=== PATIENT | female | born 1995 | race Caucasian/White ===

== ENCOUNTER 2017-01-07 17:28 | Emergency (ER) | payer BC ==
--- NOTE | 2017-01-07 18:02 | ER Document Report ---
ED Medical Screen (RME) - General Chief Complaint: Vaginal Bleeding Stated Complaint: VAGINAL BLEEDING Time Seen by Provider: 01/07/17 17:52 Mode of Arrival: Ambulatory Information source: Patient TRAVEL OUTSIDE OF THE [place] IN LAST 30 DAYS: No - HPI Patient complains to provider of: ; vaginal bleeding Onset: Just prior to arrival - pt is approx 9 wks along who started bleeding per vaginal earlier this evening. Has had some crampy abdominal pain. - Related Data Allergies/Adverse Reactions: latex Allergy (Verified 01/07/17 17:47) mupirocin [From Bactroban] Allergy (Verified 01/07/17 17:47) Home Medications: Current Home Medications No122/Iron/Folic Acid [ Multi Tablet] 1 each PO DAILY 01/07/17 [History] Past Medical History - General Last Menstrual Period: 11/02/16 Renal/ Medical History: Denies: Hx Peritoneal Dialysis Physical Exam - Vital signs Vitals: Temp Pulse Resp BP Pulse Ox 99.5 F 93 18 125/78 98 01/07/17 17:40 01/07/17 17:40 01/07/17 17:40 01/07/17 17:40 01/07/17 17:40 Course - Vital Signs Vital signs: Temp Pulse Resp BP Pulse Ox 99.5 F 93 18 125/78 98 01/07/17 17:40 01/07/17 17:40 01/07/17 17:40 01/07/17 17:40 01/07/17 17:40
[2017-01-07 18:52] LABS: ABSOLUTE EOSINOPHILS # (AUTO) 0.2 10^3/uL (0.0-0.6); ABSOLUTE LYMPHOCYTES (AUTO) 1.8 10^3/uL (0.5-4.7); ABSOLUTE MONOCYTES (AUTO) 0.6 10^3/uL (0.1-1.4); ABSOLUTE NEUT (AUTO) 3.4 10^3/uL (1.7-8.2); BASOPHILS % (AUTO) 0.4 % (0-2); EOSINOPHILS % (AUTO) 3.2 % (0-6); HEMATOCRIT 38.4 % (36.0-47.0); HEMOGLOBIN 13.5 g/dL (12.0-15.5); HGB HCT DIFFERENCE 2.1; MEAN CORPUSCULAR HEMOGLOBIN 28.4 pg (27.0-33.4); MEAN CORPUSCULAR HGB CONC 35.1 g/dL (32.0-36.0); MEAN CORPUSCULAR VOLUME 81 fl (80-97); MONOCYTES % (AUTO) 9.4 % (3-13); RED BLOOD COUNT 4.74 10^6/uL (3.72-5.28); RED CELL DISTRIBUTION WIDTH 15.6 % (11.5-14.0)
[2017-01-07 19:12] LABS: ALANINE AMINOTRANSFERASE 25 U/L (9-52); ALBUMIN 4.3 g/dL (3.5-5.0); ALKALINE PHOSPHATASE 73 U/L (38-126); ANION GAP 11 (5-19); ASPARTATE AMINO TRANSFERASE 20 U/L (14-36); BILIRUBIN,DIRECT 0.2 mg/dL (0.0-0.4); BILIRUBIN,TOTAL 0.4 mg/dL (0.2-1.3); BLOOD UREA NITROGEN 14 mg/dL (7-20); CALCIUM 9.2 mg/dL (8.4-10.2); CARBON DIOXIDE 26 mmol/L (22-30); CHLORIDE 106 mmol/L (98-107); CREATININE RESULT 0.66 mg/dL (0.52-1.25); GLUCOSE 90 mg/dL (75-110); SODIUM 143.1 mmol/L (137-145); TOTAL PROTEIN 7.2 g/dL (6.3-8.2)
[2017-01-07 19:16] LABS: APPEARANCE,URINE SLIGHTLY-CLOUDY; BILIRUBIN,URINE NEGATIVE (NEGATIVE); GLUCOSE, URINE NEGATIVE (NEGATIVE); KETONES,URINE NEGATIVE (NEGATIVE); LEUKOCYTE ESTERASE,URINE SMALL (NEGATIVE); NITRITE,URINE NEGATIVE (NEGATIVE); PROTEIN,URINE NEGATIVE (NEGATIVE); URINE SPECIFIC GRAVITY 1.018; UROBILINOGEN,URINE NEGATIVE mg/dL (<2.0)
[2017-01-07 19:28] LABS: POTASSIUM 4.2 mmol/L (3.6-5.0)
--- NOTE | 2017-01-07 19:33 | ER Document Report ---
ED GI/ - General Chief Complaint: Vaginal Bleeding Stated Complaint: VAGINAL BLEEDING Time Seen by Provider: 01/07/17 17:52 Mode of Arrival: Ambulatory Information source: Patient Notes: 21-year-old female presents to ED for complaint of vaginal bleeding that started earlier this evening just prior to arrival. Patient states she is 7 para 2 and approximately 9 weeks . She states she is already been seen at [facility] on January 04 and told that they wanted another hCG and ultrasound in about 2 weeks. TRAVEL OUTSIDE OF THE [place] IN LAST 30 DAYS: No - HPI Patient complains to provider of: , Vaginal bleeding Quality of pain: Cramping Severity at maximum: Severe Location: Pelvis Vaginal bleeding (Compared to normal period): Similar Menstrual period history: : 7 Para: 2 Abortions: 4 - miscarriages ABO type: o Rh factor: + OB ultrasound done: Yes Sexual history: Active Associated symptoms: Other - Pelvic pain and vaginal bleeding Exacerbated by: Movement Relieved by: Denies Similar symptoms previously: Yes Recently seen / treated by doctor: Yes - Related Data Allergies/Adverse Reactions: latex Allergy (Verified 01/07/17 17:47) mupirocin [From Bactroban] Allergy (Verified 01/07/17 17:47) Home Medications: Current Home Medications No122/Iron/Folic Acid [ Multi Tablet] 1 each PO DAILY 01/07/17 [History] Past Medical History - General Information source: Patient Last Menstrual Period: 11/02/16 - Social History Smoking Status: Former Smoker Cigarette use (# per day): No Chew tobacco use (# tins/day): No Smoking Education Provided: No Frequency of alcohol use: None Drug Abuse: None Occupation: none Lives with: Family, Spouse/Significant other Family History: Arthritis, CAD, Hyperlipidemia, Hypertension, Malignancy, Thyroid Disfunction. denies: COPD, CVA, DM Patient has suicidal ideation: No Patient has homicidal ideation: No - Past Medical History Cardiac Medical History: Reports: None Pulmonary Medical History: Reports: None EENT Medical History: Reports: None Neurological Medical History: Reports: None Endocrine Medical History: Reports: None Renal/ Medical History: Reports: Hx Ovarian Cysts, Other - Thin uterus multiple miscarriages Malignancy Medical History: Reports: None GI Medical History: Reports: None Musculoskeltal Medical History: Reports None Skin Medical History: Reports None Psychiatric Medical History: Reports: Hx Anxiety Traumatic Medical History: Reports: None Infectious Medical History: Reports: None Past Surgical History: Reports: Hx Oral Surgery Review of Systems - Review of Systems Constitutional: No symptoms reported EENT: No symptoms reported Cardiovascular: No symptoms reported Respiratory: No symptoms reported Gastrointestinal: No symptoms reported Genitourinary: No symptoms reported Female Genitourinary: , Vaginal bleeding, Other - pelvic pain Musculoskeletal: No symptoms reported Skin: No symptoms reported Hematologic/Lymphatic: No symptoms reported Neurological/Psychological: No symptoms reported -: Yes All other systems reviewed and negative Physical Exam - Vital signs Vitals: Temp Pulse Resp BP Pulse Ox 99.5 F 93 18 125/78 98 01/07/17 17:40 01/07/17 17:40 01/07/17 17:40 01/07/17 17:40 01/07/17 17:40 Interpretation: Normal - General General appearance: Appears well, Alert - HEENT Head: Normocephalic, Atraumatic Eyes: Normal Pupils: PERRL - Respiratory Respiratory status: No respiratory distress Chest status: Nontender Breath sounds: Normal Chest palpation: Normal - Cardiovascular Rhythm: Regular Heart sounds: Normal auscultation Murmur: No - Abdominal Inspection: Normal Distension: No distension Bowel sounds: Normal Tenderness: Tender - Pelvic area Organomegaly: No organomegaly - Genitourinary Notes: Patient refused pelvic exam states she had one 2 weeks ago and she does not need another pelvic exam. She states she had STD checking. When explained to her I needed to see if the cervix was open and how much bleeding and if there was any tissue in the vaginal vault she says no she does not want one and she is not going to have one. - Back Back: Normal, Nontender - Extremities General upper extremity: Normal inspection, Nontender, Normal color, Normal ROM , Normal temperature General lower extremity: Normal inspection, Nontender, Normal color, Normal ROM , Normal temperature, Normal weight bearing. No: [place]'s sign - Neurological Neuro grossly intact: Yes Cognition: Normal Orientation: AAOx4 [place] Coma Scale Eye Opening: Spontaneous [place] Coma Scale Verbal: Oriented [place] Coma Scale Motor: Obeys Commands [place] Coma Scale Total: 15 Speech: Normal Motor strength normal: LUE, RUE, LLE, RLE Sensory: Normal - Psychological Associated symptoms: Normal affect, Normal mood - Skin Skin Temperature: Warm Skin Moisture: Dry Skin Color: Normal Course - Re-evaluation Re-evalutation: 01/07/17 19:55 Report of labs and ultrasound given to patient for follow-up with her [employer]. Patient refused to have a pelvic exam completed. Aunt at the bedside wanted to know why the doctor did not go to the ultrasound to do the pelvic exam while she was up on the ultrasound table. Patient told mother that she did not see a doctor after she had seen Dr. Mae and myself. She also was overheard saying that she had her awful things about [place]. She has already been seen by Fahad Hood and her [employer] SE[employer]ER for this - Vital Signs Vital signs: Temp Pulse Resp BP Pulse Ox 98.4 F 90 18 112/66 96 01/07/17 20:08 01/07/17 20:08 01/07/17 20:08 01/07/17 20:08 01/07/17 20:08 - Laboratory Result Diagrams: 01/07/17 18:34 01/07/17 18:34 Laboratory results interpreted by me: 01/07/17 01/07/17 01/07/17 18:34 18:34 18:34 RDW 15.6 H Beta HCG, Quant 1092.50 H Urine Blood LARGE H Ur Leukocyte Esterase SMALL H - Diagnostic Test Radiology reviewed: Image reviewed, Reports reviewed Discharge - Discharge Clinical Impression: Vaginal bleeding affecting early Condition: Stable Disposition: HOME, SELF-CARE Instructions: Ob-[facility] [employer] [facility] Additional Instructions: Your ultrasound today shows an early gestational sac with no pole. Your hCG of 1092.5 is consistent with a very early . You have refused to let me do a pelvic exam and I cannot examine your cervix to see if it is open or closed. I cannot see if there are any products of conception in your vaginal vault or blood or blood clots. You will need to return to your [employer] in 48 hours for a repeat test or you can return here and have a repeat hCG drawn in 48 hours. I will give you a prescription for a repeat hCG in 48 hours. You can use Tylenol for your pain. Warm packs will help with the cramping. If you develop a fever or have any other concerns you can return to the ED or contact your [employer]. I have given you a copy of the lab results and the ultrasound result for follow- up with your [employer]ER FOLLOW-UP CARE: If you have been referred to a physician for follow-up care, call the physician s office for an appointment as you were instructed or within the next two days. If you experience worsening or a significant change in your symptoms, notify the physician immediately or return to the Emergency Department at any time for re-evaluation. Forms: Follow-Up Laboratory Testing Referrals: KIMBERLY GAYLE PA [Primary Care Provider] - Follow up as needed
--- NOTE | 2017-01-07 19:38 | RADIOLOGY REPORT (SQ) ---
EXAM DESCRIPTION: U/S OB TRANSVAG W/DOPPLER COMPLETED DATE/TIME: 01/07/2017 7:07 pm REASON FOR STUDY: ; bleeding COMPARISON: None. TECHNIQUE: Transvaginal static and realtime grayscale images acquired of the pelvis. Additional soheila cted spectral and color Doppler images recorded. All images stored on PACs. bHCG: Not available. LIMITATIONS: None. FINDINGS: UTERUS: No masses. No anomalies. GESTATIONAL SAC: A hypoechoic focus is seen within the endometrial echo complex, measuring on the ord er of 5 mm. This may represent an early gestational sac. YOLK SAC: No. POLE: No. RIGHT ADNEXA: Ovary not identified. No adnexal free fluid. No adnexal masses. LEFT ADNEXA: Normal ovary with normal vascular flow. No adnexal free fluid. No adnexal masses. FREE FLUID: None. OTHER: No other significant finding. IMPRESSION: POSSIBLE EARLY INTRAUTERINE . BHCG LEVEL NOT AVAILABLE FOR CORRELATION WITH US FINDINGS. CONSIDER F/U BHCG AND/OR ULTRASOUND FOR VERIFICATION AND TO EXCLUDE ECTOPIC . Trimester of : First - 0 to 13 weeks. TECHNICAL DOCUMENTATION: JOB ID: [id number] [employer]- All Rights Reserved
[2017-01-07 20:09] VITALS: BP 112/66
== END 2017-01-07 20:09 | disposition home or self-care (01) ==
LOC: ER 17:28
DX: O20.9 Hemorrhage in early pregnancy, unspecified (principal); Z3A.09 9 weeks gestation of pregnancy; Z91.040 Latex allergy status; Z87.891 Personal history of nicotine dependence
CPT/HCPCS: 36415; 76817; 80053; 81001; 84702; 85025; 86900; 86901; 93976; 99284

== ENCOUNTER 2017-08-31 12:48 | Outpatient (CLI) | payer OTHER, BC ==
[2017-08-31 13:15] LABS: APPEARANCE,URINE CLEAR; BILIRUBIN,URINE NEGATIVE (NEGATIVE); COLOR,URINE YELLOW; GLUCOSE, URINE NEGATIVE (NEGATIVE); KETONES,URINE NEGATIVE (NEGATIVE); LEUKOCYTE ESTERASE,URINE TRACE (NEGATIVE); NITRITE,URINE NEGATIVE (NEGATIVE); PROTEIN,URINE NEGATIVE (NEGATIVE); URINE SPECIFIC GRAVITY 1.014; UROBILINOGEN,URINE NEGATIVE mg/dL (<2.0)
[2017-08-31 13:58] LABS: URINE AMPHETAMINES SCREEN NEGATIVE; URINE BARBITURATES SCREEN NEGATIVE; URINE BENZODIAZEPINES SCREEN NEGATIVE; URINE COCAINE SCREEN NEGATIVE; URINE MARIJUANA (THC) SCREEN NEGATIVE; URINE METHADONE SCREEN NEGATIVE; URINE PHENCYCLIDINE SCREEN NEGATIVE
== END 2017-08-31 15:09 | disposition home or self-care (01) ==
LOC: LC 12:48
PROVIDERS: ATTEND Obstetrics & Gynecology
PROC: 4A1HXCZ Monitoring of Products of Conception, Cardiac Rate, External Approach (ICD-10-PCS; principal; 2017-08-31)
DX: Z34.93 Encounter for supervision of normal pregnancy, unspecified, third trimester (principal)
CPT/HCPCS: 36415; 80307; 81001; 86850; 86900; 86901

== ENCOUNTER 2017-08-31 15:24 | Emergency (ER) | payer OTHER, BC ==
[2017-08-31] MEDS ORDERED: ACETAMINOPHEN 325 MG TABLET PO ONE (16:10)
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
--- NOTE | 2017-08-31 17:45 | RADIOLOGY REPORT (SQ) ---
EXAM DESCRIPTION: U/S OB LIMITED COMPLETED DATE/TIME: 08/31/2017 5:21 pm REASON FOR STUDY: pelvic pain low back pain 28 weeks COMPARISON: None. TECHNIQUE: Limited transabdominal grayscale ultrasound for evaluation of specific requested obstetri alma delia parameters. LIMITATIONS: None. FINDINGS: CERVICAL LENGTH: 3.4 cm Closed. MARCELLA: 20 cm. FHR: 158 beats per minute. PRESENTATION: Cephalic. OTHER: Gestational age: 28 weeks 1 day. IMPRESSION: LIMITED OBSTETRICAL ULTRASOUND WITH MEASURED PARAMETERS DELINEATED ABOVE. Trimester of : Third trimester - 28 weeks to delivery. TECHNICAL DOCUMENTATION: JOB ID: [id number] [employer]- All Rights Reserved Reading location - IP/workstation name: [email or web address]
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
[2017-08-31 18:10] VITALS: BP 108/62
== END 2017-08-31 18:10 | disposition home or self-care (01) ==
LOC: ER 15:24
DX: O99.89 Other specified diseases and conditions complicating pregnancy, childbirth and the puerperium (principal); M54.2 Cervicalgia; M54.89 Other dorsalgia; O26.893 Other specified pregnancy related conditions, third trimester; R10.2 Pelvic and perineal pain; V40.5XXA Car driver injured in collision with pedestrian or animal in traffic accident, initial encounter; Z3A.28 28 weeks gestation of pregnancy
CPT/HCPCS: 99284; 72040; 76815; L0120

== ENCOUNTER 2018-08-30 16:14 | Inpatient (IN) | payer BC ==
[2018-08-30] MEDS ORDERED: ACETAMINOPHEN 325 MG TABLET PO ONE (16:41)
[2018-08-30] MEDS ORDERED: NORMAL SALINE 1000 ML 1,000 ML IV ONE (16:41)
[2018-08-30] MEDS ORDERED: ONDANSETRON HCL INJ/PF 4 MG/2 ML SDV IV ONE (16:41)
--- NOTE | 2018-08-30 16:44 | ER Document Report ---
ED Medical Screen (RME) - General Chief Complaint: Fever Stated Complaint: NECK PAIN, FEVER Time Seen by Provider: 08/30/18 16:38 Primary Care Provider: KIMBERLY GAYLE PA [Primary Care Provider] - Follow up as needed TRAVEL OUTSIDE OF THE [place] IN LAST 30 DAYS: No - HPI Notes: 08/30/18 16:42 Patient is a 23-year-old female complaining of severe headache for the past 4 days with associated fever, body ache, neck pain/stiffness, and nausea. Patient was sent for evaluation for possible meningitis. She is otherwise acting behaving normally. She is able to eat and drink, but does have a decreased p.o. intake. She is urinating normally and having normal bowel movements. No recent illness otherwise. Denies URI, CP, SOB, Abd pain, dysuria, or rash. I have treated and performed a rapid initial assessment of this patient. A comprehensive ED assessment and evaluation of the patient, analysis of test results and completion of medical decision making process will be conducted by additional ED providers. PHYSICAL EXAMINATION: GENERAL: Well-appearing, well-nourished and in no acute distress. A&Ox4. Answers questions appropriately. oropharynx: no significant hypertrophy or erythema. Neck: + rigidity, tenderness with flexion/ROM. LUNGS: Breath sounds clear to auscultation bilaterally and equal. No wheezes rales or rhonchi. HEART: Regular rate and rhythm without murmurs, rubs, gallops. Extremities: No cyanosis, clubbing, or edema b/l. NEUROLOGICAL: Normal speech, normal gait. Cranial nerves grossly intact. GCS 15. PSYCH: Normal mood, normal affect. - Related Data Allergies/Adverse Reactions: latex Allergy (Verified 08/31/17 12:58) mupirocin [From Bactroban] Allergy (Verified 08/31/17 12:58) Past Medical History - Social History Chew tobacco use (# tins/day): No Frequency of alcohol use: None Drug Abuse: None Renal/ Medical History: Reports: Hx Ovarian Cysts. Denies: Hx Peritoneal Dialysis Psychiatric Medical History: Reports: Hx Anxiety, Hx Depression - anxiety Past Surgical History: Reports: Hx Oral Surgery - wisdom teeth Physical Exam - Vital signs Vitals: Temp Pulse Resp BP Pulse Ox 101.4 F H 129 H 20 111/65 98 08/30/18 16:20 08/30/18 16:20 08/30/18 16:20 08/30/18 16:20 08/30/18 16:20 Course - Vital Signs Vital signs: Temp Pulse Resp BP Pulse Ox 101.4 F H 129 H 20 111/65 98 08/30/18 16:20 08/30/18 16:20 08/30/18 16:20 08/30/18 16:20 08/30/18 16:20 Doctor's Discharge - Discharge Referrals: KIMBERLY GAYLE PA [Primary Care Provider] - Follow up as needed
--- NOTE | 2018-08-30 17:17 | RADIOLOGY REPORT (SQ) ---
EXAM DESCRIPTION: CT HEAD WITHOUT COMPLETED DATE/TIME: 08/30/2018 5:07 pm REASON FOR STUDY: severe SAMPSON, fever COMPARISON: None. TECHNIQUE: Axial images acquired through the brain without intravenous contrast. Images reviewed wi th bone, brain and subdural windows. Additional sagittal and coronal reconstructions were generated. Images stored on PACS. All CT scanners at this facility use dose modulation, iterative reconstruction, and/or weight based d osing when appropriate to reduce radiation dose to as low as reasonably achievable (ALARA). [facility]: Dose Right [facility]: CareDose [facility]: Dose Right [facility]: Teradose 4D [facility]: 4Soils RADIATION DOSE: CT Rad equipment meets quality standard of care and radiation dose reduction techniq ues were employed. CTDIvol: 53.2 mGy. DLP: 991 mGy-cm. mGy. LIMITATIONS: None. FINDINGS: VENTRICLES: Normal size and contour. CEREBRUM: No masses. No hemorrhage. No midline shift. No evidence for acute infarction. Normal gra y/white matter differentiation. No areas of low density in the white matter. CEREBELLUM: No masses. No hemorrhage. No alteration of density. No evidence for acute infarction. EXTRAAXIAL SPACES: No fluid collections. No masses. ORBITS AND GLOBE: No intra- or extraconal masses. Normal contour of globe without masses. CALVARIUM: No fracture. PARANASAL SINUSES: No fluid or mucosal thickening. SOFT TISSUES: No mass or hematoma. OTHER: No other significant finding. IMPRESSION: NORMAL BRAIN CT WITHOUT CONTRAST. EVIDENCE OF ACUTE STROKE: NO. COMMENT: Quality ID # [id number]: Final reports with documentation of one or more dose reduction techniques (e.g., Automated exposure control, adjustment of the mA and/or kV according to patient size, use of iterative reconstruction technique) TECHNICAL DOCUMENTATION: JOB ID: [id number] 1914 [place]- All Rights Reserved Reading location - IP/workstation name: [email or web address]
[2018-08-30 17:37] LABS: ABSOLUTE BASOPHILS # (AUTO) 0.1 10^3/uL (0.0-0.2); ABSOLUTE MONOCYTES (AUTO) 0.9 10^3/uL (0.1-1.4); ABSOLUTE NEUT (AUTO) 10.4 10^3/uL (1.7-8.2); BASOPHILS % (AUTO) 0.4 % (0-2); EOSINOPHILS % (AUTO) 0.1 % (0-6); HEMATOCRIT 39.1 % (36.0-47.0); HEMOGLOBIN 13.5 g/dL (12.0-15.5); LYMPHOCYTES % (AUTO) 8.4 % (13-45); MEAN CORPUSCULAR HEMOGLOBIN 28.8 pg (27.0-33.4); MEAN CORPUSCULAR HGB CONC 34.4 g/dL (32.0-36.0); MEAN CORPUSCULAR VOLUME 84 fl (80-97); MONOCYTES % (AUTO) 7.6 % (3-13); PLATELET COUNT 194 10^3/uL (150-450); RED BLOOD COUNT 4.67 10^6/uL (3.72-5.28); RED CELL DISTRIBUTION WIDTH 13.5 % (11.5-14.0); SEGMENTED NEUTROPHILS % (AUTO) 83.5 % (42-78); TOTAL CELLS COUNTED % (AUTO) 100 %; WHITE BLOOD COUNT 12.4 10^3/uL (4.0-10.5)
[2018-08-30 18:00] LABS: ALANINE AMINOTRANSFERASE 22 U/L (9-52); ALBUMIN 4.5 g/dL (3.5-5.0); ALKALINE PHOSPHATASE 70 U/L (38-126); ANION GAP 15 (5-19); ASPARTATE AMINO TRANSFERASE 23 U/L (14-36); BILIRUBIN,DIRECT 0.3 mg/dL (0.0-0.4); BILIRUBIN,TOTAL 0.6 mg/dL (0.2-1.3); BLOOD UREA NITROGEN 10 mg/dL (7-20); CALCIUM 9.1 mg/dL (8.4-10.2); CARBON DIOXIDE 23 mmol/L (22-30); CHLORIDE 101 mmol/L (98-107); GLUCOSE 108 mg/dL (75-110); POTASSIUM 3.7 mmol/L (3.6-5.0); SODIUM 139.1 mmol/L (137-145); TOTAL PROTEIN 7.8 g/dL (6.3-8.2)
[2018-08-30 19:00] LABS: APPEARANCE,URINE CLEAR; BILIRUBIN,URINE NEGATIVE (NEGATIVE); COLOR,URINE YELLOW; GLUCOSE, URINE NEGATIVE (NEGATIVE); KETONES,URINE NEGATIVE (NEGATIVE); LEUKOCYTE ESTERASE,URINE NEGATIVE (NEGATIVE); NITRITE,URINE NEGATIVE (NEGATIVE); PROTEIN,URINE NEGATIVE (NEGATIVE); URINE SPECIFIC GRAVITY 1.011; UROBILINOGEN,URINE NEGATIVE mg/dL (<2.0)
[2018-08-30 20:53] LABS: INTERNATIONAL RATION (INR) 1.16; PROTHROMBIN TIME 14.9 SEC (11.4-15.4)
[2018-08-30 20:54] LABS: PARTIAL THROMBOPLASTIN TIME 31.2 SEC (23.5-35.8)
--- NOTE | 2018-08-30 21:05 | ER Document Report ---
ED Fever - General Chief Complaint: Fever Stated Complaint: NECK PAIN, FEVER Time Seen by Provider: 08/30/18 16:38 Mode of Arrival: Ambulatory Information source: Patient TRAVEL OUTSIDE OF THE [place] IN LAST 30 DAYS: No - HPI Onset/Duration: Gradual Quality of pain: Sharp Severity: Moderate Pain Level: 3 Associated symptoms: Fever, Headache, Other - Neck pain Similar symptoms previously: No Recently seen / treated by doctor: Yes - Related Data Allergies/Adverse Reactions: latex Allergy (Verified 08/31/17 12:58) mupirocin [From Bactroban] Allergy (Verified 08/31/17 12:58) Past Medical History - Social History Smoking Status: Current Every Day Smoker Chew tobacco use (# tins/day): No Frequency of alcohol use: None Drug Abuse: None Family History: Arthritis, CAD, Hyperlipidemia, Hypertension, Malignancy, Thyroid Disfunction. denies: COPD, CVA, DM Patient has suicidal ideation: No Patient has homicidal ideation: No Renal/ Medical History: Reports: Hx Ovarian Cysts. Denies: Hx Peritoneal Dialysis Psychiatric Medical History: Reports: Hx Anxiety, Hx Depression - anxiety Past Surgical History: Reports: Hx Oral Surgery - wisdom teeth Review of Systems - Review of Systems Constitutional: Fever. denies: Chills EENT: No symptoms reported Cardiovascular: No symptoms reported Respiratory: No symptoms reported Gastrointestinal: No symptoms reported Genitourinary: No symptoms reported Female Genitourinary: No symptoms reported Musculoskeletal: Neck pain Skin: No symptoms reported Hematologic/Lymphatic: No symptoms reported Neurological/Psychological: Headaches -: Yes All other systems reviewed and negative Physical Exam - Vital signs Vitals: Temp Pulse Resp BP Pulse Ox 101.4 F H 129 H 20 111/65 98 08/30/18 16:20 08/30/18 16:20 08/30/18 16:20 08/30/18 16:20 08/30/18 16:20 Interpretation: Normal - General General appearance: Appears well, Alert - HEENT Head: Normocephalic, Atraumatic Eyes: Normal Pupils: PERRL - Respiratory Respiratory status: No respiratory distress Chest status: Nontender Breath sounds: Normal Chest palpation: Normal - Cardiovascular Rhythm: Regular Heart sounds: Normal auscultation Murmur: No - Abdominal Inspection: Normal Distension: No distension Bowel sounds: Normal Tenderness: Nontender Organomegaly: No organomegaly - Back Back: Normal, Nontender - Extremities General upper extremity: Normal inspection, Nontender, Normal color, Normal ROM, Normal temperature General lower extremity: Normal inspection, Nontender, Normal color, Normal ROM, Normal temperature, Normal weight bearing. No: [place]'s sign - Neurological Neuro grossly intact: Yes Cognition: Normal Orientation: AAOx4 [place] Coma Scale Eye Opening: Spontaneous [place] Coma Scale Verbal: Oriented [place] Coma Scale Motor: Obeys Commands [place] Coma Scale Total: 15 Speech: Normal Motor strength normal: LUE, RUE, LLE, RLE Sensory: Normal - Psychological Associated symptoms: Normal affect, Normal mood - Skin Skin Temperature: Warm Skin Moisture: Dry Skin Color: Normal Course - Vital Signs Vital signs: Temp Pulse Resp BP Pulse Ox 98.4 F 68 16 100/54 L 98 08/31/18 20:03 08/31/18 20:03 08/31/18 20:03 08/31/18 20:03 08/31/18 20:03 - Laboratory Result Diagrams: 08/31/18 05:05 08/31/18 05:05 Laboratory results interpreted by me: 08/30/18 08/30/18 17:10 18:25 WBC 12.4 H Seg Neutrophils % 83.5 H Lymphocytes % 8.4 L Absolute Neutrophils 10.4 H Urine Blood SMALL H - Diagnostic Test Radiology reviewed: Image reviewed, Reports reviewed Radiology results interpreted by me: 09/01/18 00:[address] is negative. - Transfer of Care Notes: 09/01/18 00:04 Patient refused lumbar puncture after the risk and benefits were explained to her. 09/01/18 00:04 Patient was admitted by the hospitalist Dr. Ott to work for further evaluation and management. Discharge - Discharge Clinical Impression: Neck pain Sepsis Qualifiers: Sepsis type: sepsis due to unspecified organism Qualified Code(s): A41.9 - Sepsis, unspecified organism Fever Qualifiers: Fever type: unspecified Qualified Code(s): R50.9 - Fever, unspecified Headache Qualifiers: Headache type: unspecified Headache chronicity pattern: unspecified pattern Intractability: not intractable Qualified Code(s): R51 - Headache Condition: Stable Disposition: ADMITTED INPATIENT Admitting Provider: Cecilio (Hospitalist) Unit Admitted: Medical Floor
[2018-08-30] MEDS ORDERED: LIDOCAINE 1% INJ-PF (10 MG/ML) 30 ML SDV INJ ONE (21:33)
[2018-08-30 21:41] LABS: VENOUS BLOOD BASE EXCESS -0.5 mmol/L; VENOUS BLOOD HCO3 23.6 mmol/L (20-32); VENOUS BLOOD PH 7.42 (7.30-7.42)
--- NOTE | 2018-08-30 21:55 | RADIOLOGY REPORT (SQ) ---
EXAM DESCRIPTION: XR CHEST 1 VIEW COMPLETED DATE/TME: 08/30/2018 21:12 CLINICAL HISTORY: 23 years, Female, fever Comparison: None FINDINGS: No focal lung consolidation. No pleural effusion. No pneumothorax. Cardiac and mediastinal silhouette is unremarkable. No acute osseous abnormality. Soft tissues are unremarkable. IMPRESSION: No acute findings. No focal lung consolidation.
[2018-08-30 22:21] LABS: PROTHROMBIN TIME 15.3 SEC (11.4-15.4)
[2018-08-30 22:38] LABS: A TYPE INFLUENZA AG NEGATIVE (NEGATIVE)
[2018-08-30 22:39] LABS: B INFLUENZA AG NEGATIVE (NEGATIVE)
[2018-08-30] MEDS ORDERED: IPRATROPIUM/ALBUTEROL 0.5-2.5 MG/3 ML AMPUL NEB PRN (23:35)
[2018-08-30] MEDS ORDERED: MAG HYDROX/AL HYDROX/SIMETH SUSP 30 ML UDCUP PO PRN (23:35)
--- NOTE | 2018-08-30 23:38 | EKG REPORT ---
SEVERITY:- NORMAL ECG - SINUS RHYTHM : Confirmed by: Komal Quiroz 30-Aug-2018 23:37:20
[2018-08-30] MEDS ORDERED: CEFTRIAXONE 2 GM/D5W RTU 2 GM/50 ML RTUPB IV ONE (23:40)
[2018-08-30] MEDS ORDERED: VANCOMYCIN HCL INJ 1000 MG VIAL IV ONE (23:41)
[2018-08-30] MEDS ORDERED: VANCOMYCIN HCL 0 MG in DEXTROSE 5%-WATER 250 ML IV NR (23:45)
[2018-08-30] MEDS ORDERED: VANCOMYCIN HCL INJ 1000 MG VIAL IV PRN (23:47)
[2018-08-31] MEDS ORDERED: VANCOMYCIN HCL 1,500 MG in DEXTROSE 5%-WATER 250 ML IV ONE (00:30)
[2018-08-31] MEDS: ACETAMINOPHEN 325 MG TABLET PO PRN (00:31)
[2018-08-31 00:32] LABS: URINE AMPHETAMINES SCREEN NEGATIVE; URINE BARBITURATES SCREEN NEGATIVE; URINE BENZODIAZEPINES SCREEN NEGATIVE; URINE COCAINE SCREEN NEGATIVE; URINE MARIJUANA (THC) SCREEN NEGATIVE; URINE METHADONE SCREEN NEGATIVE; URINE PHENCYCLIDINE SCREEN NEGATIVE
[2018-08-31] MEDS: NORMAL SALINE 1000 ML 1,000 ML IV PRN ×3 (00:32→05:15)
[2018-08-31] MEDS: KETOROLAC TROMETHAMINE INJ/PF 30 MG/1 ML SDV IV PRN ×2 (01:45→15:21)
[2018-08-31] MEDS ORDERED: IBUPROFEN 800 MG TABLET PO ONE (01:51)
--- NOTE | 2018-08-31 05:26 | PDOC H&P ---
History of Present Illness Admission Date/PCP: 08/30/18 23:53 Patient complains of: Fever and headache History of Present Illness: NANO GAONA is a 23 year old female with a past medical history of tobacco dependence who presents with 5 days of headache, arthralgias, fever and stiff neck over the last 24 hours. This prompted her to consult her primary care provider Dick Andrew physician family practice physician assistant who suggest is evaluated for meningitis in the emergency department. Patient has leukocytosis, fever and hypotension persistent headache but refuses LP she is treated empirically for bacterial meningitis and referred to the hospitalist for admission. She denies previous episode, known ill contacts and is otherwise felt well, denying rash, nausea or vomiting. Past Medical History Psychiatric Medical History: Reports: Depression, Tobacco Dependency Social History Information Source: Patient, [facility] Records Lives with: Spouse/Significant other Smoking Status: Current Every Day Smoker Cigarettes Packs Per Day: 0.5 Frequency of Alcohol Use: Rare Drugs: None Hx Prescription Drug Abuse: No - Advance Directive Resuscitation Status: Full Code Family History Family History: Arthritis, CAD, Hyperlipidemia, Hypertension, Malignancy, Thyroid Disfunction. denies: COPD, CVA, DM Parental Family History Reviewed: Yes Children Family History Reviewed: Yes Sibling(s) Family History Reviewed.: Yes Medication/Allergy Home Medications: No122/Iron/Folic Acid [ Multi Tablet] 1 each PO DAILY 01/07/17 Escitalopram Oxalate [Lexapro] 10 mg PO DAILY 08/31/17 Allergies/Adverse Reactions: latex Allergy (Verified 08/31/17 12:58) mupirocin [From Bactroban] Allergy (Verified 08/31/17 12:58) Review of Systems Constitutional: ABSENT: chills, fever(s), headache(s), weight gain, weight loss Eyes: ABSENT: visual disturbances Ears: ABSENT: hearing changes Cardiovascular: ABSENT: chest pain, dyspnea on exertion, edema, orthropnea, palpitations Respiratory: ABSENT: cough, hemoptysis Gastrointestinal: ABSENT: abdominal pain, constipation, diarrhea, hematemesis, hematochezia, nausea, vomiting Genitourinary: ABSENT: dysuria, hematuria Musculoskeletal: ABSENT: joint swelling Integumentary: ABSENT: rash, wounds Neurological: ABSENT: abnormal gait, abnormal speech, confusion, dizziness, focal weakness, syncope Psychiatric: ABSENT: anxiety, depression, homidical ideation, suicidal ideation Endocrine: ABSENT: cold intolerance, heat intolerance, polydipsia, polyuria Hematologic/Lymphatic: ABSENT: easy bleeding, easy bruising Physical Exam Vital Signs: Temp Pulse Resp BP Pulse Ox 99.0 F 129 H 13 115/70 95 08/31/18 03:02 08/30/18 16:20 08/31/18 04:31 08/31/18 04:31 08/31/18 04:31 Intake & Output 08/29/18 08/30/18 08/31/18 11:59 11:59 11:59 Intake Total 3050 Balance 3050 Weight 92.2 kg General appearance: PRESENT: cooperative, mild distress, well-developed, well- nourished Head exam: PRESENT: atraumatic, normocephalic Eye exam: PRESENT: conjunctiva pink, EOMI, PERRLA. ABSENT: scleral icterus Ear exam: PRESENT: normal external ear exam Mouth exam: PRESENT: moist, tongue midline Neck exam: PRESENT: tenderness - Muscular tenderness, no pain elicited by chin to chest or hip flexion. ABSENT: carotid bruit, JVD, lymphadenopathy, meningismus, thyromegaly Respiratory exam: PRESENT: clear to auscultation jed. ABSENT: rales, rhonchi, wheezes Cardiovascular exam: PRESENT: RRR. ABSENT: diastolic murmur, rubs, systolic murmur Pulses: PRESENT: normal dorsalis pedis pul Vascular exam: PRESENT: normal capillary refill GI/Abdominal exam: PRESENT: normal bowel sounds, soft. ABSENT: distended, guarding, mass, organolmegaly, rebound, tenderness Rectal exam: PRESENT: deferred Extremities exam: PRESENT: full ROM. ABSENT: calf tenderness, clubbing, pedal edema Neurological exam: PRESENT: alert, awake, oriented to person, oriented to place, oriented to time, oriented to situation, CN II-XII grossly intact. ABSENT: motor sensory deficit Psychiatric exam: PRESENT: appropriate affect, normal mood. ABSENT: homicidal ideation, suicidal ideation Skin exam: PRESENT: dry, intact, warm. ABSENT: cyanosis, rash Results Laboratory Results: 08/30/18 08/30/18 08/30/18 17:10 17:10 18:25 WBC 12.4 H RBC 4.67 Hgb 13.5 Hct 39.1 MCV 84 MCH 28.8 MCHC 34.4 RDW 13.5 Plt Count 194 Seg Neutrophils % 83.5 H Lymphocytes % 8.4 L Monocytes % 7.6 Eosinophils % 0.1 Basophils % 0.4 Absolute Neutrophils 10.4 H Absolute Lymphocytes 1.0 Absolute Monocytes 0.9 Absolute Eosinophils 0.0 Absolute Basophils 0.1 VBG pH VBG pCO2 VBG HCO3 VBG Base Excess Sodium 139.1 Potassium 3.7 Chloride 101 Carbon Dioxide 23 Anion Gap 15 BUN 10 Creatinine 0.64 Est GFR ( Amer) > 60 Est GFR (Non-Af Amer) > 60 Glucose 108 Lactic Acid Calcium 9.1 Total Bilirubin 0.6 AST 23 ALT 22 Alkaline Phosphatase 70 Total Protein 7.8 Albumin 4.5 Urine Color YELLOW Urine Appearance CLEAR Urine pH 5.0 Ur Specific [place] 1.011 Urine Protein NEGATIVE Urine Glucose (UA) NEGATIVE Urine Ketones NEGATIVE Urine Blood SMALL H Urine Nitrite NEGATIVE Ur Leukocyte Esterase NEGATIVE Urine WBC (Auto) 1 Urine RBC (Auto) 2 08/30/18 08/30/18 08/30/18 21:32 21:32 22:05 WBC RBC Hgb Hct MCV MCH MCHC RDW Plt Count Seg Neutrophils % Lymphocytes % Monocytes % Eosinophils % Basophils % Absolute Neutrophils Absolute Lymphocytes Absolute Monocytes Absolute Eosinophils Absolute Basophils VBG pH 7.42 VBG pCO2 37.0 VBG HCO3 23.6 VBG Base Excess -0.5 Sodium Potassium Chloride Carbon Dioxide Anion Gap BUN Creatinine Est GFR ( Amer) Est GFR (Non-Af Amer) Glucose Lactic Acid Cancelled 0.9 Calcium Total Bilirubin AST ALT Alkaline Phosphatase Total Protein Albumin Urine Color Urine Appearance Urine pH Ur Specific [place] Urine Protein Urine Glucose (UA) Urine Ketones Urine Blood Urine Nitrite Ur Leukocyte Esterase Urine WBC (Auto) Urine RBC (Auto) Impressions: Head CT 08/30/18 16:41 IMPRESSION: NORMAL BRAIN CT WITHOUT CONTRAST. EVIDENCE OF ACUTE STROKE: NO. Chest X-Ray 08/30/18 21:12 IMPRESSION: No acute findings. No focal lung consolidation. Assessment and Plan - Diagnosis (1) Meningitis Is this a current diagnosis for this admission?: Yes Plan: Possible viral meningitis though given LP refusal, persistent fever, leukocytosis and hypotension. Vancomycin and cefepime initiated, follow-up CBC (2) Fever Qualifiers: Fever type: unspecified Qualified Code(s): R50.9 - Fever, unspecified Is this a current diagnosis for this admission?: Yes Plan: Secondary to #1, follow-up blood culture consider LP (3) Headache Qualifiers: Headache type: unspecified Headache chronicity pattern: unspecified pattern Intractability: not intractable Qualified Code(s): R51 - Headache Is this a current diagnosis for this admission?: Yes Plan: Secondary to #1, symptomatic management (4) Sepsis Qualifiers: Sepsis type: sepsis due to unspecified organism Qualified Code(s): A41.9 - Sepsis, unspecified organism Is this a current diagnosis for this admission?: Yes Plan: Secondary to #1, IV fluid challenge, - Time Time Spent with patient: 25-34 minutes - Inpatient Certification Medical Necessity: Need Close Monitoring Due to Risk of Patient Decompensation
[2018-08-31 05:28] LABS: ABSOLUTE LYMPHOCYTES (AUTO) 1.7 10^3/uL (0.5-4.7); ABSOLUTE MONOCYTES (AUTO) 1.2 10^3/uL (0.1-1.4); ABSOLUTE NEUT (AUTO) 7.3 10^3/uL (1.7-8.2); BASOPHILS % (AUTO) 0.3 % (0-2); EOSINOPHILS % (AUTO) 0.3 % (0-6); HEMATOCRIT 33.4 % (36.0-47.0); HEMOGLOBIN 11.5 g/dL (12.0-15.5); LYMPHOCYTES % (AUTO) 16.4 % (13-45); MEAN CORPUSCULAR HEMOGLOBIN 29.1 pg (27.0-33.4); MEAN CORPUSCULAR HGB CONC 34.5 g/dL (32.0-36.0); MEAN CORPUSCULAR VOLUME 84 fl (80-97); PLATELET COUNT 147 10^3/uL (150-450); RED BLOOD COUNT 3.96 10^6/uL (3.72-5.28); RED CELL DISTRIBUTION WIDTH 13.5 % (11.5-14.0); TOTAL CELLS COUNTED % (AUTO) 100 %; WHITE BLOOD COUNT 10.3 10^3/uL (4.0-10.5)
[2018-08-31 05:38] LABS: ANION GAP 6 (5-19); BLOOD UREA NITROGEN 7 mg/dL (7-20); CALCIUM 7.6 mg/dL (8.4-10.2); CARBON DIOXIDE 24 mmol/L (22-30); CHLORIDE 112 mmol/L (98-107); GLUCOSE 103 mg/dL (75-110); POTASSIUM 3.1 mmol/L (3.6-5.0); SODIUM 141.8 mmol/L (137-145)
[2018-08-31] MEDS: HEPARIN SOD (PORCINE) 5,000 UNIT/ML 1 ML SYRINGE SUBCUT SCH ×3 (05:44→22:17)
[2018-08-31] MEDS: VANCOMYCIN HCL 1,250 MG in DEXTROSE 5%-WATER 250 ML IV SCH ×2 (10:07→22:16)
[2018-08-31] MEDS ORDERED: NORMAL SALINE 1000 ML 1,000 ML IV PRN (12:17)
[2018-08-31] MEDS ORDERED: POTASSI CL 20 MEQ/50 ML RIDER 20 MEQ/50 ML RTUPB IV ONE (12:45)
[2018-08-31] MEDS ORDERED: CALCIUM GLUCONATE 1000 MG/10 ML INJ IV ONE ×2 (12:45→15:30)
--- NOTE | 2018-08-31 13:04 | PDOC PROGRESS REPORT ---
Subjective Progress Note for:: 08/31/18 Subjective:: NANO GAONA is a 23 year old female with a past medical history of tobacco dependence who presents with 5 days of headache, arthralgias, fever and stiff neck over the last 24 hours. This prompted her to consult her primary care provider Dick Andrew physician assistant engineer who suggest is evaluated for meningitis in the emergency department. Patient has leukocytosis, fever and hypotension persistent headache but refuses LP she is treated empirically for bacterial meningitis and referred to the hospitalist for admission. She denies previous episode, known ill contacts and is otherwise felt well, denying rash, nausea or vomiting. 08/31/2018. Patient still complaining of mild photophobia, neck stiffness, fatigue, generalized muscle ache. Denies any recent travel, sick contacts, has had her flu shot, does not review she had meningitis vaccine, her is a marine who is present at the bedside state that he has not any sick contacts either. She has a 10-month old child who is taken care of at home. She does give history of chickenpox as a child and had shingles on the right chest about 2 years ago. Reason For Visit: MENINGITIS,SEPSIS Physical Exam Vital Signs: Temp Pulse Resp BP Pulse Ox 97.3 F 70 12 111/76 97 08/31/18 08:25 08/31/18 08:00 08/31/18 09:01 08/31/18 09:01 08/31/18 09:01 Intake & Output 08/30/18 08/31/18 09/01/18 06:59 06:59 06:59 Intake Total 3050 Balance 3050 Weight 92.2 kg General appearance: PRESENT: no acute distress, obese, well-developed, well-nourished Head exam: PRESENT: atraumatic, normocephalic Eye exam: PRESENT: conjunctiva pink, EOMI, PERRLA. ABSENT: scleral icterus Respiratory exam: PRESENT: clear to auscultation jed. ABSENT: rales, rhonchi, wheezes Cardiovascular exam: PRESENT: RRR. ABSENT: diastolic murmur, rubs, systolic murmur Pulses: PRESENT: normal dorsalis pedis pul GI/Abdominal exam: PRESENT: normal bowel sounds, soft. ABSENT: distended, guarding, mass, organolmegaly, rebound, tenderness Neurological exam: PRESENT: alert, awake, oriented to person, oriented to place, oriented to time, oriented to situation, CN II-XII grossly intact, other - Mild neck stiffness, negative Kernig's and Brudzinski.. ABSENT: motor sensory deficit Skin exam: PRESENT: dry, intact, warm. ABSENT: cyanosis, rash Results Laboratory Results: 08/31/18 05:05 08/31/18 05:05 08/30/18 08/30/18 08/30/18 17:10 17:10 18:25 WBC 12.4 H RBC 4.67 Hgb 13.5 Hct 39.1 MCV 84 MCH 28.8 MCHC 34.4 RDW 13.5 Plt Count 194 Seg Neutrophils % 83.5 H Lymphocytes % 8.4 L Monocytes % 7.6 Eosinophils % 0.1 Basophils % 0.4 Absolute Neutrophils 10.4 H Absolute Lymphocytes 1.0 Absolute Monocytes 0.9 Absolute Eosinophils 0.0 Absolute Basophils 0.1 VBG pH VBG pCO2 VBG HCO3 VBG Base Excess Sodium 139.1 Potassium 3.7 Chloride 101 Carbon Dioxide 23 Anion Gap 15 BUN 10 Creatinine 0.64 Est GFR ( Amer) > 60 Est GFR (Non-Af Amer) > 60 Glucose 108 Lactic Acid Calcium 9.1 Total Bilirubin 0.6 AST 23 ALT 22 Alkaline Phosphatase 70 Total Protein 7.8 Albumin 4.5 Urine Color YELLOW Urine Appearance CLEAR Urine pH 5.0 Ur Specific [place] 1.011 Urine Protein NEGATIVE Urine Glucose (UA) NEGATIVE Urine Ketones NEGATIVE Urine Blood SMALL H Urine Nitrite NEGATIVE Ur Leukocyte Esterase NEGATIVE Urine WBC (Auto) 1 Urine RBC (Auto) 2 08/30/18 08/30/18 08/30/18 21:32 21:32 22:05 WBC RBC Hgb Hct MCV MCH MCHC RDW Plt Count Seg Neutrophils % Lymphocytes % Monocytes % Eosinophils % Basophils % Absolute Neutrophils Absolute Lymphocytes Absolute Monocytes Absolute Eosinophils Absolute Basophils VBG pH 7.42 VBG pCO2 37.0 VBG HCO3 23.6 VBG Base Excess -0.5 Sodium Potassium Chloride Carbon Dioxide Anion Gap BUN Creatinine Est GFR ( Amer) Est GFR (Non-Af Amer) Glucose Lactic Acid Cancelled 0.9 Calcium Total Bilirubin AST ALT Alkaline Phosphatase Total Protein Albumin Urine Color Urine Appearance Urine pH Ur Specific [place] Urine Protein Urine Glucose (UA) Urine Ketones Urine Blood Urine Nitrite Ur Leukocyte Esterase Urine WBC (Auto) Urine RBC (Auto) 08/31/18 08/31/18 05:05 05:05 WBC 10.3 RBC 3.96 Hgb 11.5 L Hct 33.4 L MCV 84 MCH 29.1 MCHC 34.5 RDW 13.5 Plt Count 147 L Seg Neutrophils % 71.0 Lymphocytes % 16.4 Monocytes % 12.0 Eosinophils % 0.3 Basophils % 0.3 Absolute Neutrophils 7.3 Absolute Lymphocytes 1.7 Absolute Monocytes 1.2 Absolute Eosinophils 0.0 Absolute Basophils 0.0 VBG pH VBG pCO2 VBG HCO3 VBG Base Excess Sodium 141.8 Potassium 3.1 L Chloride 112 H Carbon Dioxide 24 Anion Gap 6 BUN 7 Creatinine 0.58 Est GFR ( Amer) > 60 Est GFR (Non-Af Amer) > 60 Glucose 103 Lactic Acid Calcium 7.6 L Total Bilirubin AST ALT Alkaline Phosphatase Total Protein Albumin Urine Color Urine Appearance Urine pH Ur Specific [place] Urine Protein Urine Glucose (UA) Urine Ketones Urine Blood Urine Nitrite Ur Leukocyte Esterase Urine WBC (Auto) Urine RBC (Auto) Impressions: Head CT 08/30/18 16:41 IMPRESSION: NORMAL BRAIN CT WITHOUT CONTRAST. EVIDENCE OF ACUTE STROKE: NO. Chest X-Ray 08/30/18 21:12 IMPRESSION: No acute findings. No focal lung consolidation. Assessment and Plan - Diagnosis (1) Meningitis Is this a current diagnosis for this admission?: Yes Plan: Fever, leukocytosis mild neck stiffness. Negative for rash, Brudzinski or Kernig sign. Influenza A/B negative. Denies any history of seizure disorder or previous encephalitis/meningitis. Patient endorses history of chickenpox and shingles to the right trunk several years ago. Denies any history of sick contact, her is a marine who also denies any sick contact. Has a [id number] baby that she is breast-feeding, does not attend daycare. Physical examination and history suggestive of possible viral/aseptic meningitis. 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 Will get MRI brain to rule out HSV temporal encephalitis. She has consented for lumbar puncture. We will go ahead and order lumbar puncture CSF analysis and culture. HSV 1/2 antibody, VZV IgM. Day 2 of IV antibiotics. Day 2 of IV vancomycin. Day 2 of IV ceftriaxone. Day 1 of IV acyclovir. Cultures no growth so far. Continue supportive measures, continue IV antibiotics, follow-up cultures. (2) Sepsis Qualifiers: Sepsis type: sepsis due to unspecified organism Qualified Code(s): A41.9 - Sepsis, unspecified organism Is this a current diagnosis for this admission?: Yes Plan: Secondary to #1 Vitals WNL. Continue IV fluids, monitor volume status. (3) Obesity Qualifiers: Body mass index: BMI 33.0-33.9 Is this a current diagnosis for this admission?: Yes Plan: Diet and lifestyle modification recommended. (4) Fever Qualifiers: Fever type: unspecified Qualified Code(s): R50.9 - Fever, unspecified Is this a current diagnosis for this admission?: Yes Plan: As per #1. (5) Headache Qualifiers: Headache type: unspecified Headache chronicity pattern: unspecified pattern Intractability: not intractable Qualified Code(s): R51 - Headache Is this a current diagnosis for this admission?: Yes Plan: Secondary to #1, symptomatic management
[2018-08-31] MEDS ORDERED: MORPHINE SULFATE 10 MG/ML INJ IV PRN (13:06)
[2018-08-31] MEDS ORDERED: CEFTRIAXONE 1 GM/D5W RTU 1 GM/50 ML RTUPB IV SCH (13:30)
--- NOTE | 2018-08-31 14:31 | RADIOLOGY REPORT (SQ) ---
EXAM DESCRIPTION: MRI HEAD WITHOUT COMPLETED DATE/TIME: 08/31/2018 2:13 pm REASON FOR STUDY: r/o hsv encephalitis COMPARISON: CT 08/30/2018 TECHNIQUE: Multiplanar imaging includes non-contrasted T1, T2, FLAIR, and diffusion with ADC map seq uences. Images stored on PACS. LIMITATIONS: None. FINDINGS: ANATOMY: No anomalies. Normal vascular flow voids. Pituitary fossa normal. CSF SPACES: Normal in size and contour. No hemorrhage. CEREBRUM: Sulci and gyri normal in size and contour. Normal white matter signal on FLAIR imaging. No evidence of hemorrhage, mass, or extraaxial fluid collection. POSTERIOR FOSSA: No signal alteration. No hemorrhage. No edema, masses or mass effect. Internal yaritza tory canals, cerebello-pontine angles, mastoids normal. DIFFUSION IMAGING: Negative for acute or sub-acute infarction. ORBITS: No masses. Globes normal. PARANASAL SINUSES: Large mucous retention cyst in the left maxillary sinus. OTHER: No other significant finding. IMPRESSION: Left maxillary sinus disease. No acute intracranial imaging findings. EVIDENCE OF ACUTE STROKE: NO. TECHNICAL DOCUMENTATION: JOB ID: [id number]- All Rights Reserved Reading location - IP/workstation name: [email or web address]
[2018-08-31] MEDS: CEFTRIAXONE SODIUM 1,000 MG in DEXTROSE 5%-WATER 50 ML IV SCH (14:59)
[2018-08-31 15:05] LABS: INTERNATIONAL RATION (INR) 1.33; PROTHROMBIN TIME 16.6 SEC (11.4-15.4)
[2018-08-31 15:06] LABS: PARTIAL THROMBOPLASTIN TIME 32.5 SEC (23.5-35.8)
[2018-08-31] MEDS: ACYCLOVIR SODIUM 750 MG in NORMAL SALINE 250 ML IV SCH ×2 (15:37→22:16)
[2018-08-31] MEDS ORDERED: CEFTRIAXONE SODIUM 1,000 MG in DEXTROSE 5%-WATER 50 ML IV SCH (22:00)
[2018-09-01] MEDS: VANCOMYCIN HCL 1,250 MG in DEXTROSE 5%-WATER 250 ML IV SCH ×3 (03:30→19:55)
[2018-09-01] MEDS: HEPARIN SOD (PORCINE) 5,000 UNIT/ML 1 ML SYRINGE SUBCUT SCH ×3 (05:14→22:07)
[2018-09-01 05:56] LABS: ABSOLUTE EOSINOPHILS # (AUTO) 0.2 10^3/uL (0.0-0.6); ABSOLUTE LYMPHOCYTES (AUTO) 2.4 10^3/uL (0.5-4.7); ABSOLUTE MONOCYTES (AUTO) 1.1 10^3/uL (0.1-1.4); ABSOLUTE NEUT (AUTO) 6.1 10^3/uL (1.7-8.2); BASOPHILS % (AUTO) 0.3 % (0-2); EOSINOPHILS % (AUTO) 2.4 % (0-6); HEMATOCRIT 33.8 % (36.0-47.0); HEMOGLOBIN 11.7 g/dL (12.0-15.5); LYMPHOCYTES % (AUTO) 24.7 % (13-45); MEAN CORPUSCULAR HGB CONC 34.5 g/dL (32.0-36.0); MEAN CORPUSCULAR VOLUME 84 fl (80-97); MONOCYTES % (AUTO) 10.9 % (3-13); PLATELET COUNT 149 10^3/uL (150-450); RED BLOOD COUNT 4.03 10^6/uL (3.72-5.28); RED CELL DISTRIBUTION WIDTH 13.4 % (11.5-14.0); SEGMENTED NEUTROPHILS % (AUTO) 61.7 % (42-78); TOTAL CELLS COUNTED % (AUTO) 100 %; WHITE BLOOD COUNT 9.8 10^3/uL (4.0-10.5)
[2018-09-01] MEDS: ACETAMINOPHEN 325 MG TABLET PO PRN (06:03)
[2018-09-01 06:19] LABS: ALANINE AMINOTRANSFERASE 24 U/L (9-52); ALBUMIN 3.3 g/dL (3.5-5.0); ALKALINE PHOSPHATASE 67 U/L (38-126); ANION GAP 6 (5-19); ASPARTATE AMINO TRANSFERASE 22 U/L (14-36); BILIRUBIN,DIRECT 0.2 mg/dL (0.0-0.4); BILIRUBIN,TOTAL 0.2 mg/dL (0.2-1.3); BLOOD UREA NITROGEN 8 mg/dL (7-20); CALCIUM 8.8 mg/dL (8.4-10.2); CARBON DIOXIDE 26 mmol/L (22-30); CHLORIDE 109 mmol/L (98-107); GLUCOSE 106 mg/dL (75-110)
[2018-09-01 06:23] LABS: POTASSIUM 3.9 mmol/L (3.6-5.0)
[2018-09-01] MEDS ORDERED: CEFTRIAXONE 1 GM/D5W RTU 1 GM/50 ML RTUPB IV SCH (10:00)
[2018-09-01 10:13] LABS: APPEARANCE ALL TUBES CLEAR; COLOR ALL TUBES COLORLESS; CSF TUBE NUMBER 3; RED BLOOD CELL,CSF 0 /uL (0-10); WHITE BLOOD CELL,CSF 1 /uL (0-5)
--- NOTE | 2018-09-01 10:19 | RADIOLOGY REPORT (SQ) ---
EXAM DESCRIPTION: LUMBAR PUNCTURE; FLUORO/NEEDLE PLACEMENT/SPINE COMPLETED DATE/TIME: 09/01/2018 9:39 am REASON FOR STUDY: r/o meningitis; MENINGITIS COMPARISON: MRI brain 08/31/2018, CT brain 08/30/2018 FLUOROSCOPY TIME: 24 seconds 1 minutes digital fluoroscopic images saved to PACS. TECHNIQUE: Fluoroscopic guided lumbar puncture. LIMITATIONS: None. PROCEDURE: After written consent and assessment were obtained, the patient was brought into the fluo roscopy room and placed prone on the table. The patient's lower back was prepped in a sterile fashio n and an entry site was selected under live fluoroscopic guidance. The entry site was anesthetized wi th 1% lidocaine. A 22 gauge gauge needle was advanced through the skin and into the thecal sac at the left paracentral L2-3 level. After approximately 8.5 ml was drained, the needle was removed and a s terile bandage was placed of the site. Specimens were sent to the lab for testing. A fluoroscopic s pot image was saved to PACS confirming level access. FINDINGS: Clear CSF, opening pressure 22 cm of water, closing pressure 16 cm of water IMPRESSION: Lumbar puncture under fluoroscopy. No immediate complication. COMMENT: Patient medication list reviewed: Yes- Quality ID# [id number]:Eligible professional attests to doc umenting in the medical record they obtained, updated, or reviewed the patient's current medications. . Quality ID 145: Final reports for procedures using fluoroscopy that document radiation exposure luis armando ishan, or exposure time and number of fluorographic images (if radiation exposure indices are not avail able) TECHNICAL DOCUMENTATION: JOB ID: [id number] [employer]- All Rights Reserved Reading location - IP/workstation name: [email or web address]
[2018-09-01 10:23] LABS: VANCOMYCIN,TROUGH 15.5 ug/mL (5.0-20.0)
[2018-09-01] MEDS: ACYCLOVIR SODIUM 750 MG in NORMAL SALINE 250 ML IV SCH ×3 (12:03→22:07)
[2018-09-01] MEDS: CEFTRIAXONE SODIUM 1,000 MG in DEXTROSE 5%-WATER 50 ML IV SCH (14:12)
[2018-09-01] MEDS: KETOROLAC TROMETHAMINE INJ/PF 30 MG/1 ML SDV IV PRN (15:21)
--- NOTE | 2018-09-01 17:14 | PDOC PROGRESS REPORT ---
Subjective Progress Note for:: 09/01/18 Subjective:: Spoke with patient and at bedside. She just underwent lumbar puncture and was laying flat in the bed. States she is not allowed to move from the bed for a few hours. States her neck still hurts and is tender to palpation. Denies any vision changes right now. Discussed with her about our thoughts of meningitis and wide lumbar puncture was performed. is sitting the room without any facemask and I have spoken to him about wearing one and to be cautious about being around his kids at home. He understands the risk of his being mental status and being contagious. At this time she is not complaining of any chest pain, shortness of breath, abdominal pain or nausea vomiting. Reason For Visit: MENINGITIS,SEPSIS Physical Exam Vital Signs: Temp Pulse Resp BP Pulse Ox 98.4 F 52 L 17 110/64 97 09/01/18 11:42 09/01/18 14:00 09/01/18 11:44 09/01/18 11:42 09/01/18 11:44 Intake & Output 08/31/18 09/01/18 09/02/18 06:59 06:59 06:59 Intake Total 3050 2600 250 Balance 3050 2600 250 Weight 203 lb 4.259 oz 203 lb 4.259 oz General appearance: PRESENT: no acute distress Head exam: PRESENT: atraumatic, normocephalic Eye exam: PRESENT: EOMI. ABSENT: scleral icterus Ear exam: PRESENT: normal external ear exam Mouth exam: PRESENT: moist, tongue midline Respiratory exam: PRESENT: clear to auscultation jed, symmetrical Cardiovascular exam: PRESENT: +S1, +S2 GI/Abdominal exam: PRESENT: normal bowel sounds, soft. ABSENT: tenderness Musculoskeletal exam: PRESENT: tenderness - Cervical spine tender to palpation - midline and paraspinal. Limited exam due to her recent lumbar puncture Neurological exam: PRESENT: alert, awake, oriented to person, oriented to place, oriented to time, CN II-XII grossly intact Skin exam: PRESENT: dry, warm Results Laboratory Results: 09/01/18 05:31 09/01/18 09:47 09/01/18 09/01/18 09/01/18 05:31 05:31 09:27 WBC 9.8 RBC 4.03 Hgb 11.7 L Hct 33.8 L MCV 84 MCH 29.0 MCHC 34.5 RDW 13.4 Plt Count 149 L Seg Neutrophils % 61.7 Lymphocytes % 24.7 Monocytes % 10.9 Eosinophils % 2.4 Basophils % 0.3 Absolute Neutrophils 6.1 Absolute Lymphocytes 2.4 Absolute Monocytes 1.1 Absolute Eosinophils 0.2 Absolute Basophils 0.0 Sodium 141.0 Potassium 3.9 Chloride 109 H Carbon Dioxide 26 Anion Gap 6 BUN 8 Creatinine 0.52 Est GFR ( Amer) > 60 Est GFR (Non-Af Amer) > 60 Glucose 106 Calcium 8.8 Magnesium 1.9 Total Bilirubin 0.2 AST 22 ALT 24 Alkaline Phosphatase 67 Total Protein 6.0 L Albumin 3.3 L Fluid Tube Number 3 CSF Volume 8.0 CSF Appearance CLEAR CSF Color COLORLESS CSF WBC 1 CSF RBC 0 CSF Total Protein 09/01/18 09/01/18 09:27 09:47 WBC RBC Hgb Hct MCV MCH MCHC RDW Plt Count Seg Neutrophils % Lymphocytes % Monocytes % Eosinophils % Basophils % Absolute Neutrophils Absolute Lymphocytes Absolute Monocytes Absolute Eosinophils Absolute Basophils Sodium Potassium Chloride Carbon Dioxide Anion Gap BUN Creatinine 0.44 L Est GFR ( Amer) > 60 Est GFR (Non-Af Amer) > 60 Glucose Calcium Magnesium Total Bilirubin AST ALT Alkaline Phosphatase Total Protein Albumin Fluid Tube Number CSF Volume CSF Appearance CSF Color CSF WBC CSF RBC CSF Total Protein 17 08/30/18 21:56 Throat Throat Culture - Final NORMAL FEI Impressions: Head CT 08/30/18 16:41 IMPRESSION: NORMAL BRAIN CT WITHOUT CONTRAST. EVIDENCE OF ACUTE STROKE: NO. Chest X-Ray 08/30/18 21:12 IMPRESSION: No acute findings. No focal lung consolidation. Head MRI 08/31/18 00:00 IMPRESSION: Left maxillary sinus disease. No acute intracranial imaging findings. EVIDENCE OF ACUTE STROKE: NO. Guidance Fluoroscopy 09/01/18 00:00 IMPRESSION: Lumbar puncture under fluoroscopy. No immediate complication. Lumbar Puncture 09/01/18 07:00 IMPRESSION: Lumbar puncture under fluoroscopy. No immediate complication. Assessment and Plan - Diagnosis (1) Fever Qualifiers: Fever type: unspecified Qualified Code(s): R50.9 - Fever, unspecified Is this a current diagnosis for this admission?: Yes (2) Headache Qualifiers: Headache type: unspecified Headache chronicity pattern: unspecified pattern Intractability: not intractable Qualified Code(s): R51 - Headache Is this a current diagnosis for this admission?: Yes (3) Meningitis Is this a current diagnosis for this admission?: Yes (4) Neck pain Is this a current diagnosis for this admission?: Yes (5) Sepsis Qualifiers: Sepsis type: sepsis due to unspecified organism Qualified Code(s): A41.9 - Sepsis, unspecified organism Is this a current diagnosis for this admission?: Yes - Plan Summary Plan Summary: Sepsis-along with headache, neck pain and fever-concern for meningitis -she had her lumbar puncture done this morning I visited her and she was laying flat. She continues to have some neck pain and it is tender to palpation. Currently she is on IV Vanco, Rocephin and acyclovir. It is day 3 of antibiotics. Will wait CSF cultures. Continue with droplet precautions. Headache-see plan above Obesity-noted
[2018-09-02] MEDS: VANCOMYCIN HCL 1,250 MG in DEXTROSE 5%-WATER 250 ML IV SCH ×3 (02:00→19:20)
[2018-09-02] MEDS: HEPARIN SOD (PORCINE) 5,000 UNIT/ML 1 ML SYRINGE SUBCUT SCH ×3 (05:26→21:26)
[2018-09-02] MEDS: ACYCLOVIR SODIUM 750 MG in NORMAL SALINE 250 ML IV SCH ×3 (06:43→21:28)
[2018-09-02] MEDS ORDERED: ALPRAZOLAM 0.5 MG TABLET PO SCH (12:00)
[2018-09-02] MEDS ORDERED: ALPRAZOLAM 0.5 MG TABLET PO PRN (13:30)
--- NOTE | 2018-09-02 14:32 | PDOC PROGRESS REPORT ---
Subjective Progress Note for:: 09/02/18 Subjective:: Spoke with patient at bedside along with her and nursing. Patient states that her neck still hurts mostly with movement and flexion. She does have tenderness on palpation in the back of her neck. She is denying vision changes or headaches at this time. But she does get it when she bends her neck. I discussed with her about her cultures and results that are so far looking negative but still pending for final results. I discussed about getting imaging of her neck since she still having pain. Reason For Visit: MENINGITIS,SEPSIS Physical Exam Vital Signs: Temp Pulse Resp BP Pulse Ox 97.8 F 70 20 109/63 99 09/02/18 12:45 09/02/18 12:45 09/02/18 12:45 09/02/18 12:45 09/02/18 12:45 Intake & Output 09/01/18 09/02/18 09/03/18 06:59 06:59 06:59 Intake Total 2600 2330 515 Balance 2600 2330 515 Weight 203 lb 4.259 oz 202 lb 13.204 oz General appearance: PRESENT: no acute distress Head exam: PRESENT: atraumatic, normocephalic Eye exam: PRESENT: EOMI. ABSENT: scleral icterus Mouth exam: PRESENT: moist, tongue midline Respiratory exam: PRESENT: clear to auscultation jed, symmetrical Cardiovascular exam: PRESENT: +S1, +S2 Musculoskeletal exam: PRESENT: tenderness - Cervical and upper thoracic tender to palpation of midline and paraspinal regions. Neurological exam: PRESENT: alert, awake, oriented to person, oriented to place, oriented to time, oriented to situation, CN II-XII grossly intact Skin exam: PRESENT: dry, warm Results Laboratory Results: 09/01/18 05:31 09/01/18 09:47 Impressions: Head CT 08/30/18 16:41 IMPRESSION: NORMAL BRAIN CT WITHOUT CONTRAST. EVIDENCE OF ACUTE STROKE: NO. Chest X-Ray 08/30/18 21:12 IMPRESSION: No acute findings. No focal lung consolidation. Head MRI 08/31/18 00:00 IMPRESSION: Left maxillary sinus disease. No acute intracranial imaging findings. EVIDENCE OF ACUTE STROKE: NO. Guidance Fluoroscopy 09/01/18 00:00 IMPRESSION: Lumbar puncture under fluoroscopy. No immediate complication. Lumbar Puncture 09/01/18 07:00 IMPRESSION: Lumbar puncture under fluoroscopy. No immediate complication. Assessment and Plan - Diagnosis (1) Fever Qualifiers: Fever type: unspecified Qualified Code(s): R50.9 - Fever, unspecified Is this a current diagnosis for this admission?: Yes (2) Headache Qualifiers: Headache type: unspecified Headache chronicity pattern: unspecified pattern Intractability: not intractable Qualified Code(s): R51 - Headache Is this a current diagnosis for this admission?: Yes (3) Meningitis Is this a current diagnosis for this admission?: Yes (4) Neck pain Is this a current diagnosis for this admission?: Yes (5) Sepsis Qualifiers: Sepsis type: sepsis due to unspecified organism Qualified Code(s): A41.9 - Sepsis, unspecified organism Is this a current diagnosis for this admission?: Yes - Plan Summary Plan Summary: Sepsis-along with headache, neck pain and fever-concern for meningitis -she had her lumbar puncture done on 09/01-so far her cultures are negative which is a good sign. But she continues to have some neck pain with flexion extension and movement. She does have tenderness on palpation of midline and paraspinal regions of her cervical and upper thoracic spine. I discussed with her about getting imaging such as MRI to see for any structural abnormalities such as bone spurs, impingement, or disc abnormalities. Ordered MRI cervical and thoracic spine without IV contrast. We will continue with her IV antibiotics at this time-vancomycin, acyclovir, and Rocephin-day 3. If her cultures remain negative then we will consider discontinuing all antibiotics and antivirals. Headache-see plan above Obesity-noted
[2018-09-02] MEDS: CEFTRIAXONE SODIUM 1,000 MG in DEXTROSE 5%-WATER 50 ML IV SCH (14:34)
--- NOTE | 2018-09-02 15:08 | RADIOLOGY REPORT (SQ) ---
EXAM DESCRIPTION: MRI CERVICAL SPINE WITHOUT COMPLETED DATE/TIME: 09/02/2018 2:21 pm REASON FOR STUDY: persistent neck pain COMPARISON: None. TECHNIQUE: Sagittal and Axial imaging includes T1, T2, STIR and gradient echo sequences. LIMITATIONS: None. FINDINGS: ALIGNMENT: Normal. VERTEBRAE: Intact. BONE MARROW: Normal. No marrow replacement or reactive changes. DISCS: Normal. No significant abnormal signal or loss of height. HARDWARE: None in the spine. CORD AND BASE OF BRAIN: Normal in size and signal intensity. SOFT TISSUES: No soft tissue masses. C1-C2: No significant spinal stenosis. C2-C3: No significant spinal stenosis or exit foraminal stenosis. C3-C4: No significant spinal stenosis or exit foraminal stenosis. C4-C5: No significant spinal stenosis or exit foraminal stenosis. C5-C6: No significant spinal stenosis or exit foraminal stenosis. C6-C7: No significant spinal stenosis or exit foraminal stenosis. C7-T1: No significant spinal stenosis or exit foraminal stenosis. UPPER THORACIC: Incompletely imaged. No significant spinal stenosis or exit foraminal stenosis. OTHER: No other significant finding. IMPRESSION: NORMAL MRI CERVICAL SPINE. TECHNICAL DOCUMENTATION: JOB ID: [id number] [employer]- All Rights Reserved Reading location - IP/workstation name: [email or web address]
--- NOTE | 2018-09-02 15:09 | RADIOLOGY REPORT (SQ) ---
EXAM DESCRIPTION: MRI THORACIC SPINE WITHOUT COMPLETED DATE/TIME: 09/02/2018 2:21 pm REASON FOR STUDY: neck pain persistent COMPARISON: MRI cervical spine same date TECHNIQUE: Sagittal and Axial imaging includes T1, T2, STIR and gradient echo sequences. LIMITATIONS: None. FINDINGS: LOCALIZER: No worrisome findings. ALIGNMENT: Normal. VERTEBRAE: Intact. BONE MARROW: Normal. No marrow replacement or reactive changes. HARDWARE: None in the spine. CORD: Normal in size and signal intensity. SOFT TISSUES: No soft tissue masses. THORACIC DISCS T1-T12: No significant spinal stenosis or exit foraminal stenosis. LOWER CERVICAL: Incompletely imaged. No significant spinal stenosis or exit foraminal stenosis. UPPER LUMBAR: Incompletely imaged. No significant spinal stenosis or exit foraminal stenosis. OTHER: No other significant finding. IMPRESSION: NORMAL MRI THORACIC SPINE. TECHNICAL DOCUMENTATION: JOB ID: [id number] [employer]- All Rights Reserved Reading location - IP/workstation name: [email or web address]
[2018-09-03] MEDS: ACYCLOVIR SODIUM 750 MG in NORMAL SALINE 250 ML IV SCH (05:35)
[2018-09-03] MEDS: HEPARIN SOD (PORCINE) 5,000 UNIT/ML 1 ML SYRINGE SUBCUT SCH (07:33)
[2018-09-03] MEDS ORDERED: VANCOMYCIN HCL 1,250 MG in DEXTROSE 5%-WATER 250 ML IV SCH (10:00)
[2018-09-03] MEDS: VANCOMYCIN HCL 1,250 MG in DEXTROSE 5%-WATER 250 ML IV SCH (10:28)
[2018-09-03 12:21] VITALS: BP 113/59
--- NOTE | 2018-09-03 18:31 | PDOC DISCHARGE SUMMARY ---
General - Admit/Disc Date/PCP Admission Date/Primary Care Provider: 08/30/18 23:53 Discharge Date: 09/03/18 - Discharge Diagnosis (1) Fever Is this a current diagnosis for this admission?: Yes (2) Headache Is this a current diagnosis for this admission?: Yes (3) Meningitis Is this a current diagnosis for this admission?: Yes (4) Neck pain Is this a current diagnosis for this admission?: Yes (5) Sepsis Is this a current diagnosis for this admission?: Yes - Additional Information Resuscitation Status: Full Code Discharge Diet: As Tolerated Discharge Activity: Activity As Tolerated Home Medications: Escitalopram Oxalate [Lexapro] 20 mg PO DAILY 08/31/18 Acetaminophen [Tylenol 325 mg Tablet] 650 mg PO Q4HP PRN tablet 09/03/18 History of Present Illness History of Present Illness: NANO GAONA is a 23 year old female admitted for persistent neck pain H&P per admitting physician: "NANO GAONA is a 23 year old female with a past medical history of tobacco dependence who presents with 5 days of headache, arthralgias, fever and stiff neck over the last 24 hours. This prompted her to consult her primary care provider Dick Andrew physician communications assistant who suggest is evaluated for meningitis in the emergency department. Patient has leukocytosis, fever and hypotension persistent headache but refuses LP she is treated empirically for bacterial meningitis and referred to the hospitalist for admission. She denies previous episode, known ill contacts and is otherwise felt well, denying rash, nausea or vomiting." Hospital Course Hospital Course: 23-year-old female was admitted for neck pain and headache with some leukocytosis was concerning for meningitis. Was started on IV antibiotics and antivirals for empiric therapy. She underwent CT of the head which did not show anything later she had an LP and the cultures were all negative her blood cultures also remain negative she continues to have headache. She has placed on isolation for droplet precautions initially. Due to her persistent neck pain I went ahead and got a MRI of her cervical and thoracic spine. Fortunately that also did not show any stenosis or acutely abnormal gross findings. For the last 3 days or so she has not taken any pain medications for her neck. She is sitting up on her bed today. She tells me that she is in a lot of pain but is conversing with me without any distress. When I went into her room this morning the first and she told me is that she wants to go home today. I told her that she still has neck pain and we still do not know why she is having this pain. She states that while we did lumbar puncture and MRI of the neck and we did not find anything so she wants to go home. I told her that how will she f [id number] tells me that she will follow with her primary care doctor. I asked her why she did not take any medication for her pain she states that she is breast-feeding so she does not want to take any pain meds. I told her that she can take Tylenol and possibly ibuprofen if needed. She states that that is what she had taken in the past. I asked if she can stay for another day while we keep evaluating her neck pain but she states that she would rather leave AMA. At this time I gave her strict return precautions. I told her to follow-up with her primary care doctor and possibly a neurology and/or Ortho PT consult. Physical Exam Vital Signs: Temp Pulse Resp BP Pulse Ox 98.2 F 66 18 122/58 L 100 09/03/18 08:07 09/03/18 10:56 09/03/18 10:56 09/03/18 08:07 09/03/18 08:07 Intake & Output 09/02/18 09/03/18 09/04/18 06:59 06:59 06:59 Intake Total 2330 66220 265 Balance 2330 71012 265 Weight 202 lb 13.204 oz 201 lb 0.985 oz General appearance: PRESENT: no acute distress Head exam: PRESENT: atraumatic, normocephalic Eye exam: PRESENT: EOMI. ABSENT: scleral icterus Ear exam: PRESENT: normal external ear exam Mouth exam: PRESENT: moist, neck supple, tongue midline Neck exam: PRESENT: tenderness - tender to palpation - midline and parspinal Respiratory exam: PRESENT: clear to auscultation jed, symmetrical Cardiovascular exam: PRESENT: +S1, +S2 Pulses: PRESENT: +2 pedal pulses bilateral GI/Abdominal exam: PRESENT: normal bowel sounds, soft. ABSENT: tenderness Extremities exam: ABSENT: pedal edema Neurological exam: PRESENT: alert, awake, oriented to person, oriented to place, oriented to time, oriented to situation, CN II-XII grossly intact Skin exam: PRESENT: dry, warm Results Laboratory Results: 09/01/18 05:31 09/01/18 09:47 Impressions: Head CT 08/30/18 16:41 IMPRESSION: NORMAL BRAIN CT WITHOUT CONTRAST. EVIDENCE OF ACUTE STROKE: NO. Chest X-Ray 08/30/18 21:12 IMPRESSION: No acute findings. No focal lung consolidation. Head MRI 08/31/18 00:00 IMPRESSION: Left maxillary sinus disease. No acute intracranial imaging findings. EVIDENCE OF ACUTE STROKE: NO. Guidance Fluoroscopy 09/01/18 00:00 IMPRESSION: Lumbar puncture under fluoroscopy. No immediate complication. Lumbar Puncture 09/01/18 07:00 IMPRESSION: Lumbar puncture under fluoroscopy. No immediate complication. Cervical Spine MRI 09/02/18 00:00 IMPRESSION: NORMAL MRI CERVICAL SPINE. Thoracic Spine MRI 09/02/18 00:00 IMPRESSION: NORMAL MRI THORACIC SPINE. Qualifiers - * PATIENT BEING DISCHARGED WITH ANY OF THE FOLLOWING DIAGNOSIS: No Acute Heart Failure - Is this a Heart Failure Patient?: No Plan Time Spent: Greater than 30 Minutes
[2018-09-04 13:56] LABS: VARICELLA ZOSTER IGM AB <0.91 index (0.00-0.90)
== END 2018-09-03 12:53 | disposition home or self-care (01) | DRG 97 ==
LOC: ER 16:14 → EH 23:53 → 4S 08-31 09:44
PROVIDERS: ADMIT Internal Medicine; ATTEND Internal Medicine
PROC: 009U3ZX Drainage of Spinal Canal, Percutaneous Approach, Diagnostic (ICD-10-PCS; principal; 2018-09-01)
DX: G03.9 Meningitis, unspecified (principal); A41.9 Sepsis, unspecified organism; M54.2 Cervicalgia; F41.9 Anxiety disorder, unspecified; F32.9 Major depressive disorder, single episode, unspecified; F17.210 Nicotine dependence, cigarettes, uncomplicated; E66.9 Obesity, unspecified; Z68.33 Body mass index [BMI] 33.0-33.9, adult
CPT/HCPCS: 36415; 62270; 70450; 70551; 71045; 72141; 72146; 77003; 80048; 80053; 80202; 80307; 81001; 81025; 82565; 82803; 83605; 83735; 84157; 85025; 85610; 85730; 86695; 86787; 87040; 87070; 87205; 87804; 87880; 89050; 93005; 93010; 96361; 96374; 99285; J0133; J0610; J0696; J1885; J2405; J3370; J3480; J3490; J7030; J7050; J7060